=== PATIENT | male | born 1980 | race Caucasian/White ===

== ENCOUNTER 2017-01-30 09:20 | Day surgery (SDC) | payer BC, OTHER ==
[~2017-01-30] VITALS: Ht 167.6 cm; Wt 108.9 kg
[~2017-01-30 09:20] MED LIST: LR 1,000 ML IV ONE
[2017-01-30] MEDS ORDERED: MIDAZOLAM INJ 2 MG/2 ML VIAL (J2250) As Ordered ONE (10:55)
[2017-01-30] MEDS ORDERED: fentaNYL 100 MCG/2 ML INJECTION (J3010) As Ordered ONE (10:55)
[2017-01-30] MEDS ORDERED: LIDOCAINE 2% INJ 100 MG/5 ML SDV (FOR ANES.) As Ordered ONE (10:55)
[2017-01-30] MEDS ORDERED: PROPOFOL 200 MG/20 ML VIAL As Ordered ONE ×2 (10:55→12:48)
[2017-01-30] MEDS ORDERED: ROCURONIUM BROMIDE 50 MG/5 ML VIAL/SYRINGE As Ordered ONE ×2 (10:55→13:29)
[2017-01-30] MEDS ORDERED: KETOROLAC 60 MG/2 ML VIAL (J1885) As Ordered ONE (11:18)
[2017-01-30] MEDS ORDERED: dexameTHASONE 4 MG/ML 1ML VIAL (J1100) As Ordered ONE (11:18)
[2017-01-30] MEDS ORDERED: ONDANSETRON 4MG/2ML VIAL (J2405) As Ordered ONE (11:18)
[2017-01-30] MEDS ORDERED: SEVOFLURANE INHAL SOLN 250 ML BTL As Ordered ONE (11:22)
[2017-01-30] MEDS ORDERED: BUPIVACAINE HCL 0.25% 30 ML VIAL As Ordered ONE (11:48)
[2017-01-30] MEDS ORDERED: PHENYLephrine HCL 500 MCG/5 ML (100MCG/ML) SYRINGE (J2370) As Ordered ONE (12:16)
[2017-01-30] MEDS ORDERED: ePHEDrine SULFATE 25 MG/5 ML(5MG/ML) SYRINGE As Ordered ONE (12:35)
[2017-01-30] MEDS ORDERED: HYDROmorphone HCL 2 MG/ML 1ML VIAL (J1170) As Ordered ONE (12:46)
[2017-01-30] MEDS ORDERED: NEOSTIGMINE 1MG/ML 5 ML SYRINGE (J2710) As Ordered ONE (12:47)
[2017-01-30] MEDS ORDERED: GLYCOPYRROLATE INJ 0.2 MG/ML 2 ML VIAL As Ordered ONE (12:47)
[2017-01-30] MEDS ORDERED: BUPIVACAINE LIPOSOME/PF 1.3% 20 ML VIAL (13.3MG/ML)(EXPAREL) As Ordered ONE (13:34)
[2017-01-30] MEDS ORDERED: ACETAMINOPHEN TAB 650MG DOSE (2X325MG) PO PRN (14:30)
[2017-01-30] MEDS ORDERED: IBUPROFEN 600 MG TAB PO PRN (14:30)
[2017-01-30] MEDS ORDERED: PERCOCET 5MG/325MG TAB PO PRN (14:30)
[2017-01-30] MEDS ORDERED: ONDANSETRON 4MG/2ML VIAL (J2405) IV PRN (14:30)
[2017-01-30] MEDS ORDERED: NORCO, ANEXSIA 5/325MG TABLET (HYDROcodone/ACETAMINOPHEN) PO PRN (14:30)
[2017-01-30] MEDS ORDERED: LR 1,000 ML IV SCH (14:30)
[2017-01-30] MEDS ORDERED: fentaNYL 100 MCG/2 ML INJECTION (J3010) IV PRN (14:30)
[2017-01-30 15:30] VITALS: BP 118/61
--- NOTE | 2017-01-31 18:29 | RO ---
DATE OF PROCEDURE: 01/30/2017 PREOPERATIVE DIAGNOSIS: Epigastric hernia. POSTOPERATIVE DIAGNOSIS: Epigastric hernia. PROCEDURE PERFORMED: Laparoscopic repair of epigastric hernia with Parietex mesh. SURGEON: Dr. Johnson SKIN CARE TECHNICIAN: Dr. Garcia ANESTHESIA: General. INDICATIONS FOR PROCEDURE: The patient is a 36-year-old man who was doing some weightlifting last fall when he noticed a small bulge above the umbilicus. The bulge has persisted and he developed some discomfort in this area. He was found to have and in an epigastric hernia just above the level of the umbilicus and is now for repair. OPERATIVE PROCEDURE: The patient was placed under general endotracheal anesthesia. The patient's abdomen was prepped and draped in a sterile fashion. 0.25% Marcaine was infiltrated at the trocar sites and incisions. A short incision was made in the right lateral abdomen at about the level of the umbilicus. A Veress needle was inserted and after positive hanging drop test the abdomen was insufflated with carbon dioxide gas. The 5 mm see through port was placed over 5 mm camera and this was advanced through the abdominal wall without difficulty. Insufflation continued and inspection was performed. The liver appeared normal. Visualized loops of the small and large bowel appeared normal. By palpation the hernia defect was identified, perhaps 3 cm above the umbilical dimple. There was some fibrofatty tissue covering this area of the anterior abdominal wall. A second 5 mm port was placed in the right lower quadrant slightly closer to the midline and a third 5 mm port was placed in the right upper quadrant. Using a grasper and the harmonic scalpel. The peritoneum and preperitoneal fat were peeled away from the abdominal wall along the midline from slightly below the level of the umbilicus across the area of his hernia and up an additional 5 cm or so. In the course of this dissection the falciform ligament was freed from the anterior abdominal wall. A portion of the fibrofatty tissue was excised and left sitting on the underlying bowel for later removal. By inspection, once the fatty tissue had been peeled away the fascial defect was identified. An approximately 3-4 cm transverse supraumbilical incision was made. This was deepened into the subcutaneous tissues overlying the hernia. Some entrapped fatty tissue and a small hernia sac were excised just above the fascia. The fascial defect was clearly identified and was approximately a centimeter and half in diameter. There did appear to be some degree of a diastasis recti and the fascia seemed somewhat thinned along the midline. I therefore elected to proceed with placement of a prosthetic patch. A 9 cm Parietex patch was selected. This was a lot number [id number]. This 9 cm patch was trimmed down to a 7 cm tule river. A suture was passed taking a bite of the inferior edge of the fascia, the midpoint of the patch and the superior edge of the fascia. Prior to tying the suture the mesh was reduced into the abdomen with care to position the nonstick surface facing the bowel. This suture was then tied down bringing the fascia together and tacking the mesh centrally over this defect. Two additional sutures were placed to close the defect. The sutures used for this closure were 0 Ethibond. At this point the abdomen was reinflated. The mesh would readily flatten out over the midportion of the abdomen covering the hernia repair and the tissues above and below. The pressure within the abdomen was reduced to 8 mmHg. The secure strap tacking device was then used to tack the mesh securely to the anterior abdominal wall. Tacks were placed around the periphery and then also centrally along the midline. This appeared to give a nice repair. 20 mL of Exparel were then mixed with 10 mL of sterile saline and this was infiltrated widely around the area of the mesh as well as small amounts along each of the right-sided trocar sites. The entire 30 mL was utilized. Final inspection showed no bleeding. I would note that the fragments of freed fibrofatty tissue from the anterior abdominal wall had been removed prior to placing the mesh. The abdomen was then deflated and the trocars were all removed. The skin incisions were all closed with buried Vicryl sutures and Steri-Strips. Light dressings were applied. The patient tolerated the procedure well without apparent complication. He was awakened in the operating room, extubated and moved to the recovery room in stable condition. GILBERTO
== END 2017-01-30 16:00 | disposition home or self-care (01) ==
LOC: M SDC 09:20
PROVIDERS: ATTEND Surgery
DX: K43.9 Ventral hernia without obstruction or gangrene (principal); E66.9 Obesity, unspecified; Z72.0 Tobacco use
CPT/HCPCS: 49652; 88302; C1781; J1100; J1170; J1885; J2250; J2370; J2405; J2710; J3010

== ENCOUNTER → 2017-05-12 | Outpatient (REF) | payer OTHER | LOC: M LAB REF 17:30 | PROVIDERS: ATTEND Surgery | DX: L72.12 Trichodermal cyst (principal) ==

== ENCOUNTER → 2017-08-12 | Outpatient (CLI) | payer OTHER ==
[2017-08-12 12:41] LABS: BASO % 0.4 % (0.0-1.0); EOS # 0.2 10^3/uL (0.0-0.50); EOS % 2.1 % (0.0-3.0); HEMATOCRIT 50.8 % (42.0-52.0); HEMOGLOBIN 17.5 g/dl (14.0-18.0); IMMATURE GRANULOCYTE % 0.3 % (0-3.0); LYMPH # 1.9 10^3/uL (1.5-4.5); LYMPH % 16.9 % (24.0-44.0); MEAN CORPUSCULAR HEMOGLOBIN 30.5 pg (27.0-33.0); MEAN CORPUSCULAR HGB CONC 34.4 g/dl (32.0-36.5); MEAN CORPUSCULAR VOLUME 88.5 fl (80.0-96.0); MONO % 8.9 % (0.0-5.0); NEUTROPHILS # 8.1 10^3/uL (1.8-7.7); NEUTROPHILS % 71.4 % (36.0-66.0); PLATELET COUNT, AUTOMATED 276 10^3/uL (150-450); RED BLOOD COUNT 5.74 10^6/uL (4.30-6.10); RED CELL DISTRIBUTION WIDTH 13.2 % (11.5-14.5); WHITE BLOOD COUNT 11.4 10^3/uL (4.0-10.0)
== END ==
LOC: M WUC 10:31
DX: L03.116 Cellulitis of left lower limb (principal)
CPT/HCPCS: 85025

== ENCOUNTER → 2017-12-16 | Outpatient (REF) | payer OTHER ==
[2017-12-17 11:27] LABS: HEMATOCRIT 52.6 % (42.0-52.0); HEMOGLOBIN 17.6 g/dl (13.5-17.5); MEAN CORPUSCULAR HEMOGLOBIN 30.8 pg (27.0-33.0); MEAN CORPUSCULAR HGB CONC 33.5 g/dl (32.0-36.5); MEAN CORPUSCULAR VOLUME 92.1 fl (80.0-96.0); PLATELET COUNT, AUTOMATED 275 10^3/uL (150-450); RED BLOOD COUNT 5.71 10^6/uL (4.30-6.10); RED CELL DISTRIBUTION WIDTH 12.7 % (11.5-14.5); WHITE BLOOD COUNT 8.7 10^3/uL (4.0-10.0)
[2017-12-17 11:52] LABS: ALBUMIN 3.7 GM/DL (3.2-5.2); ALBUMIN/GLOBULIN RATIO 1.28 (1.00-1.93); ALKALINE PHOSPHATASE 34 U/L (45-117); ALT/SGPT 64 U/L (12-78); ANION GAP 7 MEQ/L (8-16); AST/SGOT 45 U/L (7-37); BILIRUBIN,TOTAL 1.5 MG/DL (0.2-1.0); BLOOD UREA NITROGEN 21 MG/DL (7-18); CALCIUM LEVEL 8.7 MG/DL (8.5-10.1); CARBON DIOXIDE LEVEL 29 MEQ/L (21-32); CHLORIDE LEVEL 105 MEQ/L (98-107); CHOLESTEROL LEVEL 171 MG/DL (<200); CHOLESTEROL RISK RATIO 5.343 (<5); CREATININE FOR GFR 1.26 MG/DL (0.70-1.30); GLOMERULAR FILTRATION RATE > 60.0 (>60); GLUCOSE, FASTING 76 MG/DL (70-100); HDL CHOLESTEROL 32 MG/DL (>40); LDL CHOLESTEROL 118.8 MG/DL (<100); NON-HDL-C 139 MG/DL; POTASSIUM SERUM 4.2 MEQ/L (3.5-5.1); SODIUM LEVEL 141 MEQ/L (136-145); TOTAL PROTEIN 6.6 GM/DL (6.4-8.2); TRIGLYCERIDES LEVEL 101 MG/DL (<150)
== END ==
LOC: M SFHCCLAY 14:58
DX: E66.01 Morbid (severe) obesity due to excess calories (principal); R40.0 Somnolence; R53.82 Chronic fatigue, unspecified
CPT/HCPCS: 84443

== ENCOUNTER → 2018-02-23 | Outpatient (REF) | payer OTHER ==
[2018-02-23 17:30] LABS: HEMATOCRIT 52.6 % (42.0-52.0); MEAN CORPUSCULAR HEMOGLOBIN 31.2 pg (27.0-33.0); MEAN CORPUSCULAR HGB CONC 34.2 g/dl (32.0-36.5); MEAN CORPUSCULAR VOLUME 91.2 fl (80.0-96.0); PLATELET COUNT, AUTOMATED 239 10^3/uL (150-450); RED BLOOD COUNT 5.77 10^6/uL (4.30-6.10); RED CELL DISTRIBUTION WIDTH 12.2 % (11.5-14.5); WHITE BLOOD COUNT 6.3 10^3/uL (4.0-10.0)
[2018-02-23 17:47] LABS: ALBUMIN 3.8 GM/DL (3.2-5.2); ALBUMIN/GLOBULIN RATIO 1.52 (1.00-1.93); ALKALINE PHOSPHATASE 37 U/L (45-117); ALT/SGPT 42 U/L (12-78); ANION GAP 7 MEQ/L (8-16); AST/SGOT 24 U/L (7-37); BLOOD UREA NITROGEN 18 MG/DL (7-18); CALCIUM LEVEL 9.1 MG/DL (8.5-10.1); CARBON DIOXIDE LEVEL 30 MEQ/L (21-32); CHLORIDE LEVEL 106 MEQ/L (98-107); GLOMERULAR FILTRATION RATE > 60.0 (>60); GLUCOSE, FASTING 93 MG/DL (70-100); POTASSIUM SERUM 4.6 MEQ/L (3.5-5.1); SODIUM LEVEL 143 MEQ/L (136-145); TOTAL PROTEIN 6.3 GM/DL (6.4-8.2)
== END ==
LOC: M SFHCCLAY 10:15
DX: D58.2 Other hemoglobinopathies (principal); R17 Unspecified jaundice

== ENCOUNTER → 2018-04-07 | Outpatient (CLI) | payer OTHER | LOC: M SLEEP HO 13:45 | DX: R06.83 Snoring (principal); R40.0 Somnolence; G47.33 Obstructive sleep apnea (adult) (pediatric) | CPT/HCPCS: G0399 ==

== ENCOUNTER → 2018-05-25 | Outpatient (REF) | payer OTHER ==
[2018-05-25 12:25] LABS: HEMATOCRIT 49.9 % (42.0-52.0); HEMOGLOBIN 16.9 g/dl (13.5-17.5); MEAN CORPUSCULAR HEMOGLOBIN 30.6 pg (27.0-33.0); MEAN CORPUSCULAR HGB CONC 33.9 g/dl (32.0-36.5); MEAN CORPUSCULAR VOLUME 90.2 fl (80.0-96.0); PLATELET COUNT, AUTOMATED 242 10^3/uL (150-450); RED BLOOD COUNT 5.53 10^6/uL (4.30-6.10); WHITE BLOOD COUNT 9.3 10^3/uL (4.0-10.0)
[2018-05-25 12:52] LABS: ALBUMIN 3.7 GM/DL (3.2-5.2); ALT/SGPT 56 U/L (12-78); BILIRUBIN,TOTAL 1.5 MG/DL (0.2-1.0); BLOOD UREA NITROGEN 14 MG/DL (7-18); CALCIUM LEVEL 8.9 MG/DL (8.5-10.1); CARBON DIOXIDE LEVEL 29 MEQ/L (21-32); CHLORIDE LEVEL 103 MEQ/L (98-107); CREATININE FOR GFR 1.17 MG/DL (0.70-1.30); GLOMERULAR FILTRATION RATE > 60.0 (>60); GLUCOSE, FASTING 89 MG/DL (70-100); POTASSIUM SERUM 4.4 MEQ/L (3.5-5.1); SODIUM LEVEL 138 MEQ/L (136-145); TOTAL PROTEIN 6.6 GM/DL (6.4-8.2)
== END ==
LOC: M SFHCCLAY 08:06
PROVIDERS: ATTEND Nurse Practitioner Family
DX: D58.2 Other hemoglobinopathies (principal); R17 Unspecified jaundice

== ENCOUNTER 2018-06-12 07:03 | Emergency (ER) | payer OTHER ==
[~2018-06-12] VITALS: Ht 167.6 cm; Wt 113.6 kg
[2018-06-12] MEDS ORDERED: guaiFENesin SYRUP 200 MG/10 ML UDC PO ONE (07:45)
--- NOTE | 2018-06-12 08:12 | REP ---
Chest x-ray: Two views. History: Cough. No comparison study. Findings: There are increased markings today in the left perihilar region on the frontal view may be a perihilar infiltrate. Some of the changes are somewhat nodular. I would suggest a follow-up radiograph. Right lung is clear. Pleural angles are sharp. Heart size is normal. No bony abnormality is seen. Impression: Increased perihilar markings on the left. Question infiltrate. Suggest follow-up radiographs after treatment to document clearing. Electronically Signed by Emigdio Valle MD 06/12/2018 08:04 A
[2018-06-12] MEDS ORDERED: CHERSYP3 PO (08:16)
[2018-06-12] MEDS ORDERED: TESS100C PO (08:16)
[2018-06-12] MEDS ORDERED: ZITHTAB PO (08:16)
[2018-06-12 08:22] VITALS: BP 117/59
== END 2018-06-12 08:53 | disposition home or self-care (01) ==
LOC: M ED 07:03
DX: J18.9 Pneumonia, unspecified organism (principal)

== ENCOUNTER 2019-08-05 12:26 | Day surgery (SDC) | payer BC ==
[~2019-08-05] VITALS: Ht 167.6 cm; Wt 101.2 kg
[~2019-08-05 12:26] MED LIST changes: +ACETAMINOPHEN 1000MG 100ML IV BTL (OFIRMEV) (J0131 PER 10MG) As Ordered ONE; +CHERSYP3 PO; +KETOROLAC 60 MG/2 ML VIAL (J1885) As Ordered ONE; +LIDOCAINE 1% MDV 20ML VIAL SQ PRN; +LIDOCAINE 2% INJ 100 MG/5 ML SDV (FOR ANES.) As Ordered ONE; +MIDAZOLAM INJ 2 MG/2 ML VIAL (J2250) As Ordered ONE; +ONDANSETRON 4MG/2ML VIAL (J2405) As Ordered ONE; +ROCURONIUM BROMIDE 50 MG/5 ML VIAL As Ordered ONE; +SUGAMMADEX SODIUM 500 MG/5 ML VIAL (BRIDION) As Ordered ONE; +TESS100C PO; +ZITHTAB PO; +dexameTHASONE 4 MG/ML 1ML VIAL (J1100) As Ordered ONE; +fentaNYL 100 MCG/2 ML INJECTION (J3010) As Ordered ONE; +propofoL 200 MG/20 ML VIAL As Ordered ONE
[2019-08-05] MEDS ORDERED: BUPIVACAINE HCL 0.25% 30 ML VIAL As Ordered ONE (14:43)
[2019-08-05] MEDS ORDERED: HYDROmorphone HCL 2 MG/ML 1ML VIAL (J1170) As Ordered ONE (15:55)
[2019-08-05] MEDS ORDERED: PHENYLephrine HCL 500 MCG/5 ML (100MCG/ML) SYRINGE (J2370) As Ordered ONE ×2 (16:06→16:48)
[2019-08-05] MEDS ORDERED: ePHEDrine SULFATE 25 MG/5 ML(5MG/ML) SYRINGE As Ordered ONE (16:48)
[2019-08-05] MEDS ORDERED: HYDR-3713 PO (17:41)
[2019-08-05] MEDS ORDERED: ONDANSETRON 4MG/2ML VIAL (J2405) IV PRN (17:45)
[2019-08-05] MEDS ORDERED: fentaNYL 100 MCG/2 ML INJECTION (J3010) IV PRN (17:45)
[2019-08-05] MEDS ORDERED: LR 1,000 ML IV SCH (17:45)
[2019-08-05] MEDS ORDERED: METOCLOPRAMIDE INJ 10MG/2ML VIAL (J2765) IV PRN (17:45)
[2019-08-05] MEDS ORDERED: MEPERIDINE INJ 25 MG/ML VIAL (J2175) IV PRN (17:45)
[2019-08-05] MEDS ORDERED: oxyCODONE 5MG TAB PO PRN (17:45)
[2019-08-05] MEDS ORDERED: NORCO, ANEXSIA 5/325MG TABLET (HYDROcodone/ACETAMINOPHEN) PO PRN (17:45)
[2019-08-05] MEDS ORDERED: IBUPROFEN 600 MG TAB PO PRN (17:45)
[2019-08-05] MEDS ORDERED: ACETAMINOPHEN TAB 650MG DOSE (2X325MG) PO PRN (17:45)
[2019-08-05 18:03] VITALS: BP 119/67
--- NOTE | 2019-08-08 06:29 | RO ---
DATE OF PROCEDURE: 08/05/2019 PREOPERATIVE DIAGNOSIS: Left inguinal hernia. POSTOPERATIVE DIAGNOSIS: Indirect left inguinal hernia. PROCEDURE PERFORMED: Robotic-assisted laparoscopic left inguinal hernia repair with mesh. The mesh utilized was a Bard 3DMax light large mesh for the left side. This was reference code number [id number] and lot number [id number]. SURGEON: Dr. Dinh Johnson [employer] COOK: ANESTHESIA: General. INDICATIONS FOR PROCEDURE: The patient is a 39-year-old man with history of a prior hernia repair on the right. He recently presented with complaints of some discomfort on the left and was found to have a left inguinal hernia. He is now for a robotic-assisted laparoscopic left inguinal herniorrhaphy. OPERATIVE PROCEDURE: The patient was brought to the operating room and placed on the table in a supine position. He was placed under general endotracheal anesthesia. The patient's abdomen, groins and genitalia were prepped and draped in a sterile fashion. 0.25% Marcaine was infiltrated at each of the trocar sites. A short transverse supraumbilical incision was made about 3-4 cm above the umbilicus. A Veress needle was inserted and after positive hanging drop test the abdomen was inflated with carbon dioxide gas. An 8 mm robotic port was placed through this incision with some resistance. He has a history of a prior hernia repair in the umbilical area and I suspected that the port had passed through the mesh from his prior hernia repair. Initial inspection showed some adhesions of omentum to the anterior abdominal wall near the port site. A second port was placed in the left upper quadrant. In order to take down the adhesions near the supraumbilical site, a 5 mm port was placed in the left lower quadrant. This allowed use of scissors and the scope to lyse the adhesions above the umbilicus through the mesh on the anterior abdominal wall. A final 8 mm port was placed in the right upper quadrant. The da [employer] patient cart of the ENDOGENX model was brought into position and docked to the endoscope port. Targeting took place and the additional robotic ports were docked. A bipolar cautery and cauterizing scissors were inserted into the working ports. The patient was tilted to an approximately 15 degrees head down position. Inspection revealed a small defect in the anterior abdominal wall consistent with an indirect inguinal hernia. A peritoneal flap was then developed by incising the peritoneum in an arcuate fashion beginning with the medial umbilical ligament and extending laterally. The flap was developed by a combination of sharp and blunt and cautery dissection. The hernia sac was identified and was carefully peeled away from the underlying spermatic cord structures. The peritoneal flap and hernia sac were not perforated. When the preperitoneal space was adequately developed, a Bard 3DMax light left-sided large mesh was inserted into the abdomen. This was reference code number [id number] and lot number [id number]. This was placed into the preperitoneal space. A #2-0 Vicryl was used to place a tack to the region of Chinedu's ligament and a second suture at the upper outer corner of the mesh to the overlying fascia. The peritoneal flap was then closed with a running #2-0 V-Loc. As the closure continued, the pressure within the abdomen was diminished and the patient was gradually taken out of his Trendelenburg position. Once the flap was closed, the needles were removed and the instruments were then removed. The abdomen was deflated and the robot was undocked. I then returned to the operating table and closed the incisions with interrupted simple buried sutures of #4-0 Vicryl and Steri-Strips. Light dressings were applied. The patient tolerated the procedure well without apparent complication. He was awakened in the operating room, extubated and moved to the recovery room in stable condition.
== END 2019-08-05 18:35 | disposition home or self-care (01) ==
LOC: M SDC 12:26
PROVIDERS: ATTEND Surgery
DX: K40.90 Unilateral inguinal hernia, without obstruction or gangrene, not specified as recurrent (principal); G47.30 Sleep apnea, unspecified; F17.220 Nicotine dependence, chewing tobacco, uncomplicated
CPT/HCPCS: 49650; C1781; J0131; J1100; J1170; J1885; J2250; J2370; J2405; J3010

== ENCOUNTER → 2025-04-19 | Outpatient (REF) | payer BC ==
[~2025-04-19] MED LIST changes: -ACETAMINOPHEN 1000MG 100ML IV BTL (OFIRMEV) (J0131 PER 10MG) As Ordered ONE; +HYDR-3713 PO; -KETOROLAC 60 MG/2 ML VIAL (J1885) As Ordered ONE; -LIDOCAINE 1% MDV 20ML VIAL SQ PRN; -LIDOCAINE 2% INJ 100 MG/5 ML SDV (FOR ANES.) As Ordered ONE; -LR 1,000 ML IV ONE; -MIDAZOLAM INJ 2 MG/2 ML VIAL (J2250) As Ordered ONE; -ONDANSETRON 4MG/2ML VIAL (J2405) As Ordered ONE; -ROCURONIUM BROMIDE 50 MG/5 ML VIAL As Ordered ONE; -SUGAMMADEX SODIUM 500 MG/5 ML VIAL (BRIDION) As Ordered ONE; -dexameTHASONE 4 MG/ML 1ML VIAL (J1100) As Ordered ONE; -fentaNYL 100 MCG/2 ML INJECTION (J3010) As Ordered ONE; -propofoL 200 MG/20 ML VIAL As Ordered ONE
[2025-04-19 13:28] LABS: ALT/SGPT 50.0 U/L (7.0-40); AST/SGOT 47.0 U/L (<34); CALCIUM LEVEL 9.0 MG/DL (8.5-10.1); CARBON DIOXIDE LEVEL 30.0 MMOL/L (20-31); CHLORIDE LEVEL 104.0 MMOL/L (98-107); CHOLESTEROL LEVEL 187.0 MG/DL (<200); CHOLESTEROL RISK RATIO 6.36 (<5); CREATININE FOR GFR 1.37 MG/DL (0.70-1.30); GLOMERULAR FILTRATION RATE 65.2 (>60); LDL CHOLESTEROL 124.4 MG/DL (<100); NON-HDL-C 157.6 MG/DL; POTASSIUM SERUM 4.6 MMOL/L (3.5-5.1); SODIUM LEVEL 143.0 MMOL/L (136-145); TRIGLYCERIDES LEVEL 166.0 MG/DL (<150)
[2025-04-19 13:30] LABS: FREE T4 0.97 NG/DL (0.89-1.76)
[2025-04-19 13:41] LABS: ESTIMATED AVERAGE GLUCOSE 117.0 MG/DL (60-110)
[2025-04-19 13:42] LABS: BASO # 0.1 10^3/uL (0.0-0.2); BASO % 0.7 % (0.0-1.0); EOS # 0.2 10^3/uL (0.0-0.5); EOS % 2.2 % (0.0-3.0); LYMPH # 1.1 10^3/uL (1.5-5.0); LYMPH % 15.9 % (24.0-44.0); MONO # 0.5 10^3/uL (0.0-0.8); MONO % 7.3 % (2.0-8.0); NEUTROPHILS # 5.1 10^3/uL (1.5-8.5); NEUTROPHILS % 73.5 % (36.0-66.0); PLATELET COUNT, AUTOMATED 309 10^3/uL (150-450)
== END ==
LOC: M SFHCCLAY 09:13
PROVIDERS: ATTEND Nurse Practitioner Family
DX: Z00.00 Encounter for general adult medical examination without abnormal findings (principal); E66.01 Morbid (severe) obesity due to excess calories; R53.82 Chronic fatigue, unspecified; R19.4 Change in bowel habit

== ENCOUNTER → 2025-05-24 | Outpatient (REF) | payer BC ==
[2025-05-24 18:04] LABS: CALCIUM LEVEL 9.5 MG/DL (8.5-10.1); CARBON DIOXIDE LEVEL 30.0 MMOL/L (20-31); CHLORIDE LEVEL 101.0 MMOL/L (98-107); CREATININE FOR GFR 1.21 MG/DL (0.70-1.30); GLOMERULAR FILTRATION RATE 75.7 (>60); POTASSIUM SERUM 4.3 MMOL/L (3.5-5.1); SODIUM LEVEL 140.0 MMOL/L (136-145)
== END ==
LOC: M SFHCCAPE 07:56
PROVIDERS: ATTEND Physician Assistant
DX: Z01.818 Encounter for other preprocedural examination (principal)